=== PATIENT | male | born 1995 | race Two or more races ===

== ENCOUNTER 2021-01-19 20:23 | Observation (INO) | payer SELFPAY ==
[~2021-01-19] VITALS: Ht 162.6 cm; Wt 61.1 kg
--- NOTE | 2021-01-19 20:57 | ED.ADGEN ---
General Adult EDM: Chief Complaint: MUSCLE SPASM/CRAMP HPI: HPI: Patient is a 25 year old male coming in for generalized muscle cramping and spasms for the past 3 hours. Patient works outside doing construction. Patient states he is never had this problem in the past. Also complaining of cold foot but denies any fevers. Not had his Covid vaccines. Denies any cough, vomiting or diarrhea. He has been drinking water today. Review of Systems: Review of Systems: All other systems within normal limits except for as noted in the HPI Current Medications: Current Medications Medications (Trade) Dose Ordered Sig/Ida Start Time Stop Time Status Last Admin Dose Admin Lorazepam (Ativan Inj) 1 mg PRN Q4HRS PRN 01/19/21 22:00 Sodium Chloride 1,000 ml @ 125 mls/hr Q8H 01/19/21 22:00 01/19/21 22:59 125 MLS/HR Tizanidine HCl (Zanaflex) 4 mg PRN Q8HRS PRN 01/19/21 22:00 Allergies: Allergies: Allergies Coded Allergies Type Severity Reaction Last Updated Verified No Known Drug Allergies 01/19/21 No Physical Exam: PE: Constitutional: Well developed, well nourished, no acute distress, non-toxic appearance. [] HENT: Normocephalic, atraumatic, bilateral external ears normal, nose normal. [] Eyes: PERRLA, conjunctiva normal, no discharge. [] Neck: No rigidity, supple, no stridor. [] Cardiovascular: Regular rate and rhythm, brisk cap refill [] Lungs & Thorax: Non labored symmetric respirations, no tachypnea or respiratory distress [] Abdomen: Soft, nondistended. Skin: Warm, dry, no erythema, no rash. [] Back: Unremarkable Extremities: No deformities, range of motion grossly intact, no lower extremity edema [] Neurologic: Alert and oriented X 3, no focal deficits noted. [] Psychologic: Affect normal, judgement normal, mood normal. [] Current Patient Data: Labs: Laboratory Tests Test 01/19/21 20:55 01/19/21 21:15 01/19/21 21:25 White Blood Count 19.0 x10^3/uL (4.0-11.0) H Red Blood Count 5.46 x10^6/uL (4.30-5.70) Hemoglobin 16.9 g/dL (13.0-17.5) Hematocrit 48.7 % (39.0-53.0) Mean Corpuscular Volume 89 fL (79-100) Mean Corpuscular Hemoglobin 31 pg (25-35) Mean Corpuscular Hemoglobin Concent 35 g/dL (31-37) Red Cell Distribution Width 13.5 % (11.5-14.5) Platelet Count 459 x10^3/uL (140-400) H Neutrophils (%) (Auto) 90 % (31-73) H Lymphocytes (%) (Auto) 5 % (24-48) L Monocytes (%) (Auto) 5 % (0-9) Eosinophils (%) (Auto) 0 % (0-3) Basophils (%) (Auto) 1 % (0-3) Neutrophils # (Auto) 17.1 x10^3/uL (1.8-7.7) H Lymphocytes # (Auto) 0.9 x10^3/uL (1.0-4.8) L Monocytes # (Auto) 0.9 x10^3/uL (0.0-1.1) Eosinophils # (Auto) 0.0 x10^3/uL (0.0-0.7) Basophils # (Auto) 0.1 x10^3/uL (0.0-0.2) Segmented Neutrophils % 83 % (35-66) H Band Neutrophils % 2 % (0-9) Lymphocytes % 10 % (24-48) L Monocytes % 4 % (0-10) Basophils % 1 % (0-3) Platelet Estimate Increased (ADEQUATE) Sodium Level 131 mmol/L (136-145) L Potassium Level 4.6 mmol/L (3.5-5.1) Chloride Level 91 mmol/L (98-107) L Carbon Dioxide Level 24 mmol/L (21-32) Anion Gap 16 (6-14) H Blood Urea Nitrogen 18 mg/dL (8-26) Creatinine 2.5 mg/dL (0.7-1.3) H Estimated GFR (Cockcroft-Gault) 31.6 BUN/Creatinine Ratio 7 (6-20) Glucose Level 137 mg/dL (70-99) H Lactic Acid Level 2.0 mmol/L (0.4-2.0) Calcium Level 10.8 mg/dL (8.5-10.1) H Phosphorus Level 7.5 mg/dL (2.6-4.7) H Magnesium Level 2.5 mg/dL (1.8-2.4) H Total Bilirubin 0.6 mg/dL (0.2-1.0) Aspartate Amino Transferase (AST) 31 U/L (15-37) Alanine Aminotransferase (ALT) 33 U/L (16-63) Alkaline Phosphatase 91 U/L (46-116) Creatine Kinase 398 U/L (39-308) H Myoglobin 2056 ng/mL (16-96) H Total Protein 10.3 g/dL (6.4-8.2) H Albumin 5.4 g/dL (3.4-5.0) H Albumin/Globulin Ratio 1.1 (1.0-1.7) Thyroid Stimulating Hormone (TSH) 6.055 uIU/mL (0.358-3.74) H Free Thyroxine 1.12 ng/dL (0.76-1.46) Free Triiodothyronine (T3) pg/mL 5.19 pg/mL (2.18-3.98) H Ionized Calcium 1.19 mmol/L (1.13-1.32) SARS-CoV-2 Antigen (Rapid) Negative (NEGATIVE) Laboratory Tests 01/19/21 20:55 Laboratory Tests 01/19/21 20:55 Vital Signs: Vital Signs Date Time Temp Pulse Resp B/P (MAP) Pulse Ox O2 Delivery O2 Flow Rate FiO2 01/19/21 20:30 98.7 94 18 131/73 99 Room Air 98.7 EKG: EKG: Sinus rhythm, heart rate 80/min, normal axis, no ST elevation or depression, no ectopy. [] Heart Score: C/O Chest Pain: No Risk Factors: Risk Factors: DM, Current or recent (<one month) smoker, HTN, HLP, family history of CAD, obesity. Risk Scores: Score 0 - 3: 2.5% MACE over next 6 weeks - Discharge Home Score 4 - 6: 20.3% MACE over next 6 weeks - Admit for Clinical Observation Score 7 - 10: 72.7% MACE over next 6 weeks - Early Invasive Strategies Radiology/Procedures: Radiology/Procedures: [] Course & Med Decision Making: Course & Med Decision Making Admitted to hospitalist for dehydration and acute kidney injury Reyna Disclaimer: Reyna Disclaimer: This electronic medical record was generated, in whole or in part, using a voice recognition dictation system. Departure Departure Impression: Primary Impression: ROSE (acute kidney injury) Additional Impressions: Person under investigation for COVID-19 Dehydration Disposition: ADMITTED INPATIENT Admitting Physician: HIMS Referrals: NO PCP (PCP) Problem Qualifiers BIJU ESQUIVEL MD Jan 19, 2021 20:57
[2021-01-19] MEDS ORDERED: IV NORMAL SALINE 1000ML BAG 1,000 ML IV ONE (21:00)
[2021-01-19 21:05] LABS: BASO # 0.1 x10^3/uL (0.0-0.2); BASO % 1 % (0-3); EOS % 0 % (0-3); HEMATOCRIT 48.7 % (39.0-53.0); HEMOGLOBIN 16.9 g/dL (13.0-17.5); LYMPH # 0.9 x10^3/uL (1.0-4.8); LYMPH % 5 % (24-48); MEAN CORPUSCULAR HEMOGLOBIN 31 pg (25-35); MEAN CORPUSCULAR HGB CONC 35 g/dL (31-37); MEAN CORPUSCULAR VOLUME 89 fL (79-100); MONO # 0.9 x10^3/uL (0.0-1.1); MONO % 5 % (0-9); NEUT # 17.1 x10^3/uL (1.8-7.7); NEUT % 90 % (31-73); PLATELET COUNT 459 x10^3/uL (140-400); RED BLOOD COUNT 5.46 x10^6/uL (4.30-5.70); RED CELL DISTRIBUTION WIDTH 13.5 % (11.5-14.5)
[2021-01-19 21:15] LABS: CALCIUM 10.8 mg/dL (8.5-10.1); CREATININE 2.5 mg/dL (0.7-1.3); GFR 31.6; POTASSIUM 4.6 mmol/L (3.5-5.1)
[2021-01-19 21:30] LABS: % BANDS 2 % (0-9); % BASOS 1 % (0-3); % LYMPHS 10 % (24-48); % MONOS 4 % (0-10); % SEGS 83 % (35-66); PLT ESTIMATE INCREASED (ADEQUATE)
[2021-01-19 21:42] LABS: ALBUMIN 5.4 g/dL (3.4-5.0); ALBUMIN/GLOBULIN RATIO 1.1 (1.0-1.7); MAGNESIUM 2.5 mg/dL (1.8-2.4); PHOSPHORUS 7.5 mg/dL (2.6-4.7); TOTAL BILIRUBIN 0.6 mg/dL (0.2-1.0); TOTAL PROTEIN 10.3 g/dL (6.4-8.2)
[2021-01-19] MEDS ORDERED: tiZANidine 4 MG TABLET. PO PRN (22:00)
[2021-01-19 22:05] LABS: FREE T4 1.12 ng/dL (0.76-1.46)
[2021-01-19] MEDS ORDERED: ONDANSETRON PF 4 MG/2 ML VIAL. IVP PRN ×2 (22:15)
[2021-01-19] MEDS ORDERED: ACETAMINOPHEN 325 MG TABLET. PO PRN (22:15)
[2021-01-19] MEDS ORDERED: MAG HYDROX/ALUMINUM HYD/SIMETH 30 ML ORAL.SUSP PO PRN (22:15)
[2021-01-19] MEDS ORDERED: HYDROcodone/APAP 5/325MG 1 TAB TABLET PO PRN (22:15)
[2021-01-19] MEDS ORDERED: CALCIUM CARBONATE 500 MG TAB.CHEW PO PRN (22:15)
[2021-01-19] MEDS ORDERED: ZOLPIDEM 5 MG TABLET. PO PRN (22:15)
[2021-01-19] MEDS ORDERED: MAGNESIUM HYDROXIDE 2,400 MG/30 ML ORAL.SUSP. PO PRN (22:15)
[2021-01-19] MEDS ORDERED: IV NORMAL SALINE 1000ML BAG 1,000 ML IV SCH (22:15)
[2021-01-19] MEDS ORDERED: MORPHINE SULFATE 4 MG/ML INJ. IVP PRN (22:15)
--- NOTE | 2021-01-19 22:34 | EKG ---
[facility] [address] [place] [address] Test Date: 2021-01-19 Test Time: 21:27:08 Pat Name: KIMBERLY HOLM Department: Room: Gender: M Background Investigator: : 1995 Requested By: BIJU ESQUIVEL Order Number: [id number] Reading MD: Measurements Intervals [place] Rate: 81 P: 52 MO: 148 QRS: 65 QRSD: 92 T: 54 QT: 358 QTc: 421 Interpretive Statements SINUS RHYTHM NORMAL ECG RI6.02 No previous ECG available for comparison
[2021-01-19] MEDS: IV NORMAL SALINE 1000ML BAG 1,000 ML IV SCH (22:59)
[2021-01-20 00:30] VITALS: BP 117/77
--- NOTE | 2021-01-20 02:30 | NUR ---
IVF not assessed as they had just been hung
[2021-01-20 03:00] VITALS: BP 111/64
[2021-01-20 07:15] VITALS: BP 112/71
--- NOTE | 2021-01-20 07:26 | PDOC1 ---
History and Physical Date of Admission Date of Admission DATE: 01/20/21 TIME: 07:10 Identification/Chief Complaint Chief Complaint Muscle cramps Source Source: Chart review, Patient History of Present Illness History of Present Illness Patient is a 25-year-old male with no significant past medical history, who presents to the ED with complaints of muscle cramps and muscle spasms that began 3 hours prior to arrival in the ED. He denies any history of similar symptoms. 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 He denies any fever, cough, vomiting, diarrhea, or known sick contacts. Labs on admission showed WBC 19.0, sodium 131, BUN 18, creatinine 2.5, CK 398, myoglobin 2056, TSH 6.055. He received IV fluids in the ED. Will admit patient for further medical management. Past Medical History Past Medical History Denies significant past medical history Past Surgical History Past Surgical History Denies surgical history Family History Family History Denies significant family history Social History Smoke: No ALCOHOL: none Drugs: None Current Medications Current Medications Current Medications Sodium Chloride 1,000 ml @ 1,000 mls/hr 1X ONCE IV Last administered on 01/19/21at 21:15; Start 01/19/21 at 21:00; Stop 01/19/21 at 21:59; Status DC Lorazepam (Ativan Inj) 1 mg 1X ONCE IVP Last administered on 01/19/21at 21:15; Start 01/19/21 at 21:00; Stop 01/19/21 at 21:02; Status DC Lorazepam (Ativan Inj) 1 mg PRN Q4HRS PRN IVP TREMORS; Start 01/19/21 at 22:00 Tizanidine HCl (Zanaflex) 4 mg PRN Q8HRS PRN PO MUSCLE SPASMS; Start 01/19/21 at 22:00 Sodium Chloride 1,000 ml @ 125 mls/hr Q8H IV Last administered on 01/19/21at 22:59; Start 01/19/21 at 22:00 Ondansetron HCl (Zofran) 4 mg PRN Q8HRS PRN IVP NAUSEA/VOMITING; Start 01/19/21 at 22:15; Stop 01/20/21 at 22:14 Morphine Sulfate (Morphine Sulfate) 4 mg PRN Q2HR PRN IVP PAIN; Start 01/19/21 at 22:15; Stop 01/20/21 at 22:14 Sodium Chloride 1,000 ml @ 125 mls/hr Q8H IV ; Start 01/19/21 at 22:15; Stop 01/19/21 at 22:12; Status DC Ondansetron HCl (Zofran) 4 mg PRN Q6HRS PRN IVP NAUSEA/VOMITING; Start 01/19/21 at 22:15 Al Hydroxide/Mg Hydroxide (Mylanta Plus Xs) 30 ml PRN Q3HRS PRN PO HEARTBURN / GAS; Start 01/19/21 at 22:15 Calcium Carbonate/ Glycine (Tums) 500 mg PRN Q3HRS PRN PO UPSET STOMACH; Start 01/19/21 at 22:15 Zolpidem Tartrate (Ambien) 5 mg PRN QHS PRN PO INSOMNIA, MAY REPEAT IN 1HR; Start 01/19/21 at 22:15 Acetaminophen/ Hydrocodone Bitart (Lortab 5/325) 1 tab PRN Q4HRS PRN PO MILD PAIN 1-3; Start 01/19/21 at 22:15 Acetaminophen (Tylenol) 650 mg PRN Q6HRS PRN PO Headaches, Temp > 101.5F; Start 01/19/21 at 22:15 Magnesium Hydroxide (Milk Of Magnesia) 2,400 mg PRN Q12HR PRN PO CONSTIPATION; Start 01/19/21 at 22:15 Allergies Allergies: Coded Allergies: No Known Drug Allergies (Unverified , 01/19/21) ROS Review of System GENERAL: No history of weight change, weakness or fevers. SKIN: No bruising, hair changes or rashes. EYES: No blurred, double or loss of vision. NOSE AND THROAT: No history of nosebleeds, hoarseness or sore throat. HEART: Denies chest pain, denies palpitations. LUNGS: Denies cough, hemoptysis, wheezing or shortness of breath. GASTROINTESTINAL: Denies nausea, vomiting, abdominal pain. GENITOURINARY: Denies dysuria, frequency, urgency, hematuria. NEUROLOGIC: Denies history of numbness, tingling, tremor or weakness. PSYCHIATRIC: Denies anxiety, denies depression. ENDOCRINE: No history of heat or cold intolerance, polyuria or polydipsia. EXTREMITIES: Denies muscle weakness, joint pain, pain on walking or stiffness. Physical Exam Physical Exam General: Alert, Oriented X3, Cooperative, No acute distress HEENT: PERRLA, EOMI Lungs: Clear to auscultation, Normal air movement Heart: RRR, no murmurs Cardiovascular: S1, S2 Abdomen: Normal bowel sounds, Soft, No tenderness Extremities: No clubbing, No cyanosis Skin: No rashes, No significant lesion Neuro: Normal speech, Normal tone, Sensation intact Psych/Mental Status: Mental status NL, Mood NL Vitals Vitals Vital Signs Date Time Temp Pulse Resp B/P (MAP) Pulse Ox O2 Delivery O2 Flow Rate FiO2 01/20/21 03:00 98.3 83 16 111/64 (80) 100 98.3 01/19/21 23:49 Room Air Labs Labs Laboratory Tests Test 01/19/21 20:55 01/19/21 21:15 01/19/21 21:25 White Blood Count 19.0 x10^3/uL (4.0-11.0) Red Blood Count 5.46 x10^6/uL (4.30-5.70) Hemoglobin 16.9 g/dL (13.0-17.5) Hematocrit 48.7 % (39.0-53.0) Mean Corpuscular Volume 89 fL (79-100) Mean Corpuscular Hemoglobin 31 pg (25-35) Mean Corpuscular Hemoglobin Concent 35 g/dL (31-37) Red Cell Distribution Width 13.5 % (11.5-14.5) Platelet Count 459 x10^3/uL (140-400) Neutrophils (%) (Auto) 90 % (31-73) Lymphocytes (%) (Auto) 5 % (24-48) Monocytes (%) (Auto) 5 % (0-9) Eosinophils (%) (Auto) 0 % (0-3) Basophils (%) (Auto) 1 % (0-3) Neutrophils # (Auto) 17.1 x10^3/uL (1.8-7.7) Lymphocytes # (Auto) 0.9 x10^3/uL (1.0-4.8) Monocytes # (Auto) 0.9 x10^3/uL (0.0-1.1) Eosinophils # (Auto) 0.0 x10^3/uL (0.0-0.7) Basophils # (Auto) 0.1 x10^3/uL (0.0-0.2) Segmented Neutrophils % 83 % (35-66) Band Neutrophils % 2 % (0-9) Lymphocytes % 10 % (24-48) Monocytes % 4 % (0-10) Basophils % 1 % (0-3) Platelet Estimate Increased (ADEQUATE) Sodium Level 131 mmol/L (136-145) Potassium Level 4.6 mmol/L (3.5-5.1) Chloride Level 91 mmol/L (98-107) Carbon Dioxide Level 24 mmol/L (21-32) Anion Gap 16 (6-14) Blood Urea Nitrogen 18 mg/dL (8-26) Creatinine 2.5 mg/dL (0.7-1.3) Estimated GFR (Cockcroft-Gault) 31.6 BUN/Creatinine Ratio 7 (6-20) Glucose Level 137 mg/dL (70-99) Lactic Acid Level 2.0 mmol/L (0.4-2.0) Calcium Level 10.8 mg/dL (8.5-10.1) Phosphorus Level 7.5 mg/dL (2.6-4.7) Magnesium Level 2.5 mg/dL (1.8-2.4) Total Bilirubin 0.6 mg/dL (0.2-1.0) Aspartate Amino Transf (AST/SGOT) 31 U/L (15-37) Alanine Aminotransferase (ALT/SGPT) 33 U/L (16-63) Alkaline Phosphatase 91 U/L (46-116) Creatine Kinase 398 U/L (39-308) Myoglobin 2056 ng/mL (16-96) Total Protein 10.3 g/dL (6.4-8.2) Albumin 5.4 g/dL (3.4-5.0) Albumin/Globulin Ratio 1.1 (1.0-1.7) Thyroid Stimulating Hormone (TSH) 6.055 uIU/mL (0.358-3.74) Free Thyroxine 1.12 ng/dL (0.76-1.46) Free Triiodothyronine (T3) pg/mL 5.19 pg/mL (2.18-3.98) Ionized Calcium 1.19 mmol/L (1.13-1.32) SARS-CoV-2 Antigen (Rapid) Negative (NEGATIVE) Laboratory Tests Test 01/19/21 20:55 01/19/21 21:15 01/19/21 21:25 White Blood Count 19.0 x10^3/uL (4.0-11.0) Red Blood Count 5.46 x10^6/uL (4.30-5.70) Hemoglobin 16.9 g/dL (13.0-17.5) Hematocrit 48.7 % (39.0-53.0) Mean Corpuscular Volume 89 fL (79-100) Mean Corpuscular Hemoglobin 31 pg (25-35) Mean Corpuscular Hemoglobin Concent 35 g/dL (31-37) Red Cell Distribution Width 13.5 % (11.5-14.5) Platelet Count 459 x10^3/uL (140-400) Neutrophils (%) (Auto) 90 % (31-73) Lymphocytes (%) (Auto) 5 % (24-48) Monocytes (%) (Auto) 5 % (0-9) Eosinophils (%) (Auto) 0 % (0-3) Basophils (%) (Auto) 1 % (0-3) Neutrophils # (Auto) 17.1 x10^3/uL (1.8-7.7) Lymphocytes # (Auto) 0.9 x10^3/uL (1.0-4.8) Monocytes # (Auto) 0.9 x10^3/uL (0.0-1.1) Eosinophils # (Auto) 0.0 x10^3/uL (0.0-0.7) Basophils # (Auto) 0.1 x10^3/uL (0.0-0.2) Segmented Neutrophils % 83 % (35-66) Band Neutrophils % 2 % (0-9) Lymphocytes % 10 % (24-48) Monocytes % 4 % (0-10) Basophils % 1 % (0-3) Platelet Estimate Increased (ADEQUATE) Sodium Level 131 mmol/L (136-145) Potassium Level 4.6 mmol/L (3.5-5.1) Chloride Level 91 mmol/L (98-107) Carbon Dioxide Level 24 mmol/L (21-32) Anion Gap 16 (6-14) Blood Urea Nitrogen 18 mg/dL (8-26) Creatinine 2.5 mg/dL (0.7-1.3) Estimated GFR (Cockcroft-Gault) 31.6 BUN/Creatinine Ratio 7 (6-20) Glucose Level 137 mg/dL (70-99) Lactic Acid Level 2.0 mmol/L (0.4-2.0) Calcium Level 10.8 mg/dL (8.5-10.1) Phosphorus Level 7.5 mg/dL (2.6-4.7) Magnesium Level 2.5 mg/dL (1.8-2.4) Total Bilirubin 0.6 mg/dL (0.2-1.0) Aspartate Amino Transf (AST/SGOT) 31 U/L (15-37) Alanine Aminotransferase (ALT/SGPT) 33 U/L (16-63) Alkaline Phosphatase 91 U/L (46-116) Creatine Kinase 398 U/L (39-308) Myoglobin 2056 ng/mL (16-96) Total Protein 10.3 g/dL (6.4-8.2) Albumin 5.4 g/dL (3.4-5.0) Albumin/Globulin Ratio 1.1 (1.0-1.7) Thyroid Stimulating Hormone (TSH) 6.055 uIU/mL (0.358-3.74) Free Thyroxine 1.12 ng/dL (0.76-1.46) Free Triiodothyronine (T3) pg/mL 5.19 pg/mL (2.18-3.98) Ionized Calcium 1.19 mmol/L (1.13-1.32) SARS-CoV-2 Antigen (Rapid) Negative (NEGATIVE) VTE Prophylaxis Ordered VTE Prophylaxis Devices: Yes VTE Pharmacological Prophylaxi: No Assessment/Plan Assessment/Plan ROSE due to vasomotor nephropathy Clinical dehydration PUI Plan: Received IV fluids and Ativan in the ER Continuous IV fluids and muscle relaxers as needed 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 FEN - Regular diet PPX - SCDs FULL CODE Dispo - observation for above Justifications for Admission Other Justification VICKIE WHITTEN MD Jan 20, 2021 07:26
[2021-01-20 07:39] LABS: BASO % 1 % (0-3); EOS # 0.1 x10^3/uL (0.0-0.7); EOS % 1 % (0-3); HEMATOCRIT 42.1 % (39.0-53.0); HEMOGLOBIN 14.2 g/dL (13.0-17.5); LYMPH # 2.5 x10^3/uL (1.0-4.8); LYMPH % 29 % (24-48); MEAN CORPUSCULAR HEMOGLOBIN 30 pg (25-35); MEAN CORPUSCULAR HGB CONC 34 g/dL (31-37); MEAN CORPUSCULAR VOLUME 90 fL (79-100); MONO # 0.8 x10^3/uL (0.0-1.1); MONO % 9 % (0-9); NEUT # 5.3 x10^3/uL (1.8-7.7); NEUT % 60 % (31-73); PLATELET COUNT 389 x10^3/uL (140-400); RED BLOOD COUNT 4.69 x10^6/uL (4.30-5.70); RED CELL DISTRIBUTION WIDTH 13.7 % (11.5-14.5); WHITE BLOOD COUNT 8.7 x10^3/uL (4.0-11.0)
[2021-01-20 07:58] LABS: ALBUMIN 3.8 g/dL (3.4-5.0); CALCIUM 9.1 mg/dL (8.5-10.1); POTASSIUM 3.5 mmol/L (3.5-5.1); TOTAL PROTEIN 7.6 g/dL (6.4-8.2)
[2021-01-20] MEDS: IV NORMAL SALINE 1000ML BAG 1,000 ML IV SCH (09:14)
--- NOTE | 2021-01-20 09:34 | PDOC3 ---
Discharge Summary Visit Information Date of Admission: Jan 20, 2021 Date of Discharge: Jan 20, 2021 Brief Hospital Course Allergies Allergies Coded Allergies Type Severity Reaction Last Updated Verified No Known Drug Allergies 01/19/21 No Vital Signs Vital Signs Date Time Temp Pulse Resp B/P (MAP) Pulse Ox O2 Delivery O2 Flow Rate FiO2 01/20/21 07:15 98.3 68 20 112/71 (85) 95 98.3 01/19/21 23:49 Room Air Lab Results Laboratory Tests Test 01/19/21 20:55 01/19/21 21:15 01/19/21 21:25 01/20/21 06:45 White Blood Count 19.0 x10^3/uL (4.0-11.0) 8.7 x10^3/uL (4.0-11.0) Red Blood Count 5.46 x10^6/uL (4.30-5.70) 4.69 x10^6/uL (4.30-5.70) Hemoglobin 16.9 g/dL (13.0-17.5) 14.2 g/dL (13.0-17.5) Hematocrit 48.7 % (39.0-53.0) 42.1 % (39.0-53.0) Mean Corpuscular Volume 89 fL (79-100) 90 fL (79-100) Mean Corpuscular Hemoglobin 31 pg (25-35) 30 pg (25-35) Mean Corpuscular Hemoglobin Concent 35 g/dL (31-37) 34 g/dL (31-37) Red Cell Distribution Width 13.5 % (11.5-14.5) 13.7 % (11.5-14.5) Platelet Count 459 x10^3/uL (140-400) 389 x10^3/uL (140-400) Neutrophils (%) (Auto) 90 % (31-73) 60 % (31-73) Lymphocytes (%) (Auto) 5 % (24-48) 29 % (24-48) Monocytes (%) (Auto) 5 % (0-9) 9 % (0-9) Eosinophils (%) (Auto) 0 % (0-3) 1 % (0-3) Basophils (%) (Auto) 1 % (0-3) 1 % (0-3) Neutrophils # (Auto) 17.1 x10^3/uL (1.8-7.7) 5.3 x10^3/uL (1.8-7.7) Lymphocytes # (Auto) 0.9 x10^3/uL (1.0-4.8) 2.5 x10^3/uL (1.0-4.8) Monocytes # (Auto) 0.9 x10^3/uL (0.0-1.1) 0.8 x10^3/uL (0.0-1.1) Eosinophils # (Auto) 0.0 x10^3/uL (0.0-0.7) 0.1 x10^3/uL (0.0-0.7) Basophils # (Auto) 0.1 x10^3/uL (0.0-0.2) 0.0 x10^3/uL (0.0-0.2) Segmented Neutrophils % 83 % (35-66) Band Neutrophils % 2 % (0-9) Lymphocytes % 10 % (24-48) Monocytes % 4 % (0-10) Basophils % 1 % (0-3) Platelet Estimate Increased (ADEQUATE) Sodium Level 131 mmol/L (136-145) 132 mmol/L (136-145) Potassium Level 4.6 mmol/L (3.5-5.1) 3.5 mmol/L (3.5-5.1) Chloride Level 91 mmol/L (98-107) 97 mmol/L (98-107) Carbon Dioxide Level 24 mmol/L (21-32) 29 mmol/L (21-32) Anion Gap 16 (6-14) 6 (6-14) Blood Urea Nitrogen 18 mg/dL (8-26) 15 mg/dL (8-26) Creatinine 2.5 mg/dL (0.7-1.3) 1.0 mg/dL (0.7-1.3) Estimated GFR (Cockcroft-Gault) 31.6 91.0 BUN/Creatinine Ratio 7 (6-20) 15 (6-20) Glucose Level 137 mg/dL (70-99) 101 mg/dL (70-99) Lactic Acid Level 2.0 mmol/L (0.4-2.0) Calcium Level 10.8 mg/dL (8.5-10.1) 9.1 mg/dL (8.5-10.1) Phosphorus Level 7.5 mg/dL (2.6-4.7) Magnesium Level 2.5 mg/dL (1.8-2.4) Total Bilirubin 0.6 mg/dL (0.2-1.0) 1.0 mg/dL (0.2-1.0) Aspartate Amino Transf (AST/SGOT) 31 U/L (15-37) 23 U/L (15-37) Alanine Aminotransferase (ALT/SGPT) 33 U/L (16-63) 27 U/L (16-63) Alkaline Phosphatase 91 U/L (46-116) 66 U/L (46-116) Creatine Kinase 398 U/L (39-308) Myoglobin 2056 ng/mL (16-96) Total Protein 10.3 g/dL (6.4-8.2) 7.6 g/dL (6.4-8.2) Albumin 5.4 g/dL (3.4-5.0) 3.8 g/dL (3.4-5.0) Albumin/Globulin Ratio 1.1 (1.0-1.7) 1.0 (1.0-1.7) Thyroid Stimulating Hormone (TSH) 6.055 uIU/mL (0.358-3.74) Free Thyroxine 1.12 ng/dL (0.76-1.46) Free Triiodothyronine (T3) pg/mL 5.19 pg/mL (2.18-3.98) Ionized Calcium 1.19 mmol/L (1.13-1.32) SARS-CoV-2 Antigen (Rapid) Negative (NEGATIVE) Laboratory Tests Test 01/19/21 20:55 01/19/21 21:15 01/19/21 21:25 01/20/21 06:45 White Blood Count 19.0 x10^3/uL (4.0-11.0) 8.7 x10^3/uL (4.0-11.0) Red Blood Count 5.46 x10^6/uL (4.30-5.70) 4.69 x10^6/uL (4.30-5.70) Hemoglobin 16.9 g/dL (13.0-17.5) 14.2 g/dL (13.0-17.5) Hematocrit 48.7 % (39.0-53.0) 42.1 % (39.0-53.0) Mean Corpuscular Volume 89 fL (79-100) 90 fL (79-100) Mean Corpuscular Hemoglobin 31 pg (25-35) 30 pg (25-35) Mean Corpuscular Hemoglobin Concent 35 g/dL (31-37) 34 g/dL (31-37) Red Cell Distribution Width 13.5 % (11.5-14.5) 13.7 % (11.5-14.5) Platelet Count 459 x10^3/uL (140-400) 389 x10^3/uL (140-400) Neutrophils (%) (Auto) 90 % (31-73) 60 % (31-73) Lymphocytes (%) (Auto) 5 % (24-48) 29 % (24-48) Monocytes (%) (Auto) 5 % (0-9) 9 % (0-9) Eosinophils (%) (Auto) 0 % (0-3) 1 % (0-3) Basophils (%) (Auto) 1 % (0-3) 1 % (0-3) Neutrophils # (Auto) 17.1 x10^3/uL (1.8-7.7) 5.3 x10^3/uL (1.8-7.7) Lymphocytes # (Auto) 0.9 x10^3/uL (1.0-4.8) 2.5 x10^3/uL (1.0-4.8) Monocytes # (Auto) 0.9 x10^3/uL (0.0-1.1) 0.8 x10^3/uL (0.0-1.1) Eosinophils # (Auto) 0.0 x10^3/uL (0.0-0.7) 0.1 x10^3/uL (0.0-0.7) Basophils # (Auto) 0.1 x10^3/uL (0.0-0.2) 0.0 x10^3/uL (0.0-0.2) Segmented Neutrophils % 83 % (35-66) Band Neutrophils % 2 % (0-9) Lymphocytes % 10 % (24-48) Monocytes % 4 % (0-10) Basophils % 1 % (0-3) Platelet Estimate Increased (ADEQUATE) Sodium Level 131 mmol/L (136-145) 132 mmol/L (136-145) Potassium Level 4.6 mmol/L (3.5-5.1) 3.5 mmol/L (3.5-5.1) Chloride Level 91 mmol/L (98-107) 97 mmol/L (98-107) Carbon Dioxide Level 24 mmol/L (21-32) 29 mmol/L (21-32) Anion Gap 16 (6-14) 6 (6-14) Blood Urea Nitrogen 18 mg/dL (8-26) 15 mg/dL (8-26) Creatinine 2.5 mg/dL (0.7-1.3) 1.0 mg/dL (0.7-1.3) Estimated GFR (Cockcroft-Gault) 31.6 91.0 BUN/Creatinine Ratio 7 (6-20) 15 (6-20) Glucose Level 137 mg/dL (70-99) 101 mg/dL (70-99) Lactic Acid Level 2.0 mmol/L (0.4-2.0) Calcium Level 10.8 mg/dL (8.5-10.1) 9.1 mg/dL (8.5-10.1) Phosphorus Level 7.5 mg/dL (2.6-4.7) Magnesium Level 2.5 mg/dL (1.8-2.4) Total Bilirubin 0.6 mg/dL (0.2-1.0) 1.0 mg/dL (0.2-1.0) Aspartate Amino Transf (AST/SGOT) 31 U/L (15-37) 23 U/L (15-37) Alanine Aminotransferase (ALT/SGPT) 33 U/L (16-63) 27 U/L (16-63) Alkaline Phosphatase 91 U/L (46-116) 66 U/L (46-116) Creatine Kinase 398 U/L (39-308) Myoglobin 2056 ng/mL (16-96) Total Protein 10.3 g/dL (6.4-8.2) 7.6 g/dL (6.4-8.2) Albumin 5.4 g/dL (3.4-5.0) 3.8 g/dL (3.4-5.0) Albumin/Globulin Ratio 1.1 (1.0-1.7) 1.0 (1.0-1.7) Thyroid Stimulating Hormone (TSH) 6.055 uIU/mL (0.358-3.74) Free Thyroxine 1.12 ng/dL (0.76-1.46) Free Triiodothyronine (T3) pg/mL 5.19 pg/mL (2.18-3.98) Ionized Calcium 1.19 mmol/L (1.13-1.32) SARS-CoV-2 Antigen (Rapid) Negative (NEGATIVE) Brief Hospital Course Mr. Richey is a 25 old male who presented with generalized muscle cramps and muscle spasms, ROSE, clinical dehydration, leukocytosis. 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 He received IV fluids and symptomatic management. His ROSE, his leukocytosis resolved with IV fluids. He was COVID-19 negative. He was stable for discharge home with self-care. Discharge Information Condition at Discharge: Improved Disposition/Orders: D/C to Home Justicifation of Admission Dx: Justifications for Admission: Justification of Admission Dx: Yes VICKIE WHITTEN MD Jan 20, 2021 09:34
--- NOTE | 2021-01-20 11:16 | PDOC2 ---
CONSULT Date of Consult Date of Consult DATE: 01/20/21 TIME: 11:09 Reason for Consult Reason for Consult: ROSE Source Source: Chart review History of Present Illness Reason for Visit: Patient is a 25-year-old sudanese speaking male male with no significant past medical history, who presents to the ED with complaints of muscle cramps and muscle spasms that began 3 hours prior to arrival in the ED. He denies any history of similar symptoms. 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 He denies any fever, cough, vomiting, diarrhea, or known sick contacts. Labs on admission showed WBC 19.0, sodium 131, BUN 18, creatinine 2.5, CK 398, myoglobin 2056, TSH 6.055. He received IV fluids in the ED. Currently no complaints . No urinary complaints . No LE edema . No F/C , No SOB Past Medical History Past Medical History Denies significant past medical history Past Surgical History Past Surgical History Denies surgical history Family History Family History Denies significant family history Social History Social History Smoke: No ALCOHOL: none Drugs: None No ALCOHOL: none Drugs: None Current Medications Current Medications Current Medications Sodium Chloride 1,000 ml @ 1,000 mls/hr 1X ONCE IV Last administered on 01/19/21at 21:15; Start 01/19/21 at 21:00; Stop 01/19/21 at 21:59; Status DC Lorazepam (Ativan Inj) 1 mg 1X ONCE IVP Last administered on 01/19/21at 21:15; Start 01/19/21 at 21:00; Stop 01/19/21 at 21:02; Status DC Lorazepam (Ativan Inj) 1 mg PRN Q4HRS PRN IVP TREMORS; Start 01/19/21 at 22:00 Tizanidine HCl (Zanaflex) 4 mg PRN Q8HRS PRN PO MUSCLE SPASMS; Start 01/19/21 at 22:00 Sodium Chloride 1,000 ml @ 125 mls/hr Q8H IV Last administered on 01/20/21at 09:14; Start 01/19/21 at 22:00 Ondansetron HCl (Zofran) 4 mg PRN Q8HRS PRN IVP NAUSEA/VOMITING; Start 01/19/21 at 22:15; Stop 01/20/21 at 22:14 Morphine Sulfate (Morphine Sulfate) 4 mg PRN Q2HR PRN IVP PAIN; Start 01/19/21 at 22:15; Stop 01/20/21 at 22:14 Sodium Chloride 1,000 ml @ 125 mls/hr Q8H IV ; Start 01/19/21 at 22:15; Stop 01/19/21 at 22:12; Status DC Ondansetron HCl (Zofran) 4 mg PRN Q6HRS PRN IVP NAUSEA/VOMITING; Start 01/19/21 at 22:15 Al Hydroxide/Mg Hydroxide (Mylanta Plus Xs) 30 ml PRN Q3HRS PRN PO HEARTBURN / GAS; Start 01/19/21 at 22:15 Calcium Carbonate/ Glycine (Tums) 500 mg PRN Q3HRS PRN PO UPSET STOMACH; Start 01/19/21 at 22:15 Zolpidem Tartrate (Ambien) 5 mg PRN QHS PRN PO INSOMNIA, MAY REPEAT IN 1HR; Start 01/19/21 at 22:15 Acetaminophen/ Hydrocodone Bitart (Lortab 5/325) 1 tab PRN Q4HRS PRN PO MILD PAIN 1-3; Start 01/19/21 at 22:15 Acetaminophen (Tylenol) 650 mg PRN Q6HRS PRN PO Headaches, Temp > 101.5F; Start 01/19/21 at 22:15 Magnesium Hydroxide (Milk Of Magnesia) 2,400 mg PRN Q12HR PRN PO CONSTIPATION; Start 01/19/21 at 22:15 Active Scripts Active No Active Prescriptions or Reported Medications Allergies Allergies: Coded Allergies: No Known Drug Allergies (Unverified , 01/19/21) ROS Review of System As per HPI, rest of the ROS is negative Physical Exam Physical Exam General NAD HEEN OM moist, anicteric Neck Supple Lungs CTA Carduac, S1S2, No murmur Abd Soft, NR, BS _ Ext No LE edema Derm No rash Neuro Grossly Normal, No focal deficit No [place], No CAV or SP tenderness Psych Cooperative MS- No Joint swelling or tenderness Vital Signs Vital Signs Date Time Temp Pulse Resp B/P (MAP) Pulse Ox O2 Delivery O2 Flow Rate FiO2 01/20/21 08:00 Room Air 01/20/21 07:15 98.3 68 20 112/71 (85) 95 98.3 Assessment & Plan ROSE - vasomotor/Dehydration, Resolved with IVF. Avoid nephrotoxins including NSAID's, Stay Hydrated , Avoid Heat Exposure Dehydration- Improved clinically with IVF, maintain PO hydration, avoif heat exposure HypoNatremia- Mild, 2/2 to above Labs Labs Laboratory Tests Test 01/19/21 20:55 01/19/21 21:15 01/19/21 21:25 01/20/21 06:45 White Blood Count 19.0 x10^3/uL (4.0-11.0) 8.7 x10^3/uL (4.0-11.0) Red Blood Count 5.46 x10^6/uL (4.30-5.70) 4.69 x10^6/uL (4.30-5.70) Hemoglobin 16.9 g/dL (13.0-17.5) 14.2 g/dL (13.0-17.5) Hematocrit 48.7 % (39.0-53.0) 42.1 % (39.0-53.0) Mean Corpuscular Volume 89 fL (79-100) 90 fL (79-100) Mean Corpuscular Hemoglobin 31 pg (25-35) 30 pg (25-35) Mean Corpuscular Hemoglobin Concent 35 g/dL (31-37) 34 g/dL (31-37) Red Cell Distribution Width 13.5 % (11.5-14.5) 13.7 % (11.5-14.5) Platelet Count 459 x10^3/uL (140-400) 389 x10^3/uL (140-400) Neutrophils (%) (Auto) 90 % (31-73) 60 % (31-73) Lymphocytes (%) (Auto) 5 % (24-48) 29 % (24-48) Monocytes (%) (Auto) 5 % (0-9) 9 % (0-9) Eosinophils (%) (Auto) 0 % (0-3) 1 % (0-3) Basophils (%) (Auto) 1 % (0-3) 1 % (0-3) Neutrophils # (Auto) 17.1 x10^3/uL (1.8-7.7) 5.3 x10^3/uL (1.8-7.7) Lymphocytes # (Auto) 0.9 x10^3/uL (1.0-4.8) 2.5 x10^3/uL (1.0-4.8) Monocytes # (Auto) 0.9 x10^3/uL (0.0-1.1) 0.8 x10^3/uL (0.0-1.1) Eosinophils # (Auto) 0.0 x10^3/uL (0.0-0.7) 0.1 x10^3/uL (0.0-0.7) Basophils # (Auto) 0.1 x10^3/uL (0.0-0.2) 0.0 x10^3/uL (0.0-0.2) Segmented Neutrophils % 83 % (35-66) Band Neutrophils % 2 % (0-9) Lymphocytes % 10 % (24-48) Monocytes % 4 % (0-10) Basophils % 1 % (0-3) Platelet Estimate Increased (ADEQUATE) Sodium Level 131 mmol/L (136-145) 132 mmol/L (136-145) Potassium Level 4.6 mmol/L (3.5-5.1) 3.5 mmol/L (3.5-5.1) Chloride Level 91 mmol/L (98-107) 97 mmol/L (98-107) Carbon Dioxide Level 24 mmol/L (21-32) 29 mmol/L (21-32) Anion Gap 16 (6-14) 6 (6-14) Blood Urea Nitrogen 18 mg/dL (8-26) 15 mg/dL (8-26) Creatinine 2.5 mg/dL (0.7-1.3) 1.0 mg/dL (0.7-1.3) Estimated GFR (Cockcroft-Gault) 31.6 91.0 BUN/Creatinine Ratio 7 (6-20) 15 (6-20) Glucose Level 137 mg/dL (70-99) 101 mg/dL (70-99) Lactic Acid Level 2.0 mmol/L (0.4-2.0) Calcium Level 10.8 mg/dL (8.5-10.1) 9.1 mg/dL (8.5-10.1) Phosphorus Level 7.5 mg/dL (2.6-4.7) Magnesium Level 2.5 mg/dL (1.8-2.4) Total Bilirubin 0.6 mg/dL (0.2-1.0) 1.0 mg/dL (0.2-1.0) Aspartate Amino Transf (AST/SGOT) 31 U/L (15-37) 23 U/L (15-37) Alanine Aminotransferase (ALT/SGPT) 33 U/L (16-63) 27 U/L (16-63) Alkaline Phosphatase 91 U/L (46-116) 66 U/L (46-116) Creatine Kinase 398 U/L (39-308) Myoglobin 2056 ng/mL (16-96) Total Protein 10.3 g/dL (6.4-8.2) 7.6 g/dL (6.4-8.2) Albumin 5.4 g/dL (3.4-5.0) 3.8 g/dL (3.4-5.0) Albumin/Globulin Ratio 1.1 (1.0-1.7) 1.0 (1.0-1.7) Thyroid Stimulating Hormone (TSH) 6.055 uIU/mL (0.358-3.74) Free Thyroxine 1.12 ng/dL (0.76-1.46) Free Triiodothyronine (T3) pg/mL 5.19 pg/mL (2.18-3.98) Ionized Calcium 1.19 mmol/L (1.13-1.32) SARS-CoV-2 Antigen (Rapid) Negative (NEGATIVE) Laboratory Tests Test 01/19/21 20:55 01/19/21 21:15 01/19/21 21:25 01/20/21 06:45 White Blood Count 19.0 x10^3/uL (4.0-11.0) 8.7 x10^3/uL (4.0-11.0) Red Blood Count 5.46 x10^6/uL (4.30-5.70) 4.69 x10^6/uL (4.30-5.70) Hemoglobin 16.9 g/dL (13.0-17.5) 14.2 g/dL (13.0-17.5) Hematocrit 48.7 % (39.0-53.0) 42.1 % (39.0-53.0) Mean Corpuscular Volume 89 fL (79-100) 90 fL (79-100) Mean Corpuscular Hemoglobin 31 pg (25-35) 30 pg (25-35) Mean Corpuscular Hemoglobin Concent 35 g/dL (31-37) 34 g/dL (31-37) Red Cell Distribution Width 13.5 % (11.5-14.5) 13.7 % (11.5-14.5) Platelet Count 459 x10^3/uL (140-400) 389 x10^3/uL (140-400) Neutrophils (%) (Auto) 90 % (31-73) 60 % (31-73) Lymphocytes (%) (Auto) 5 % (24-48) 29 % (24-48) Monocytes (%) (Auto) 5 % (0-9) 9 % (0-9) Eosinophils (%) (Auto) 0 % (0-3) 1 % (0-3) Basophils (%) (Auto) 1 % (0-3) 1 % (0-3) Neutrophils # (Auto) 17.1 x10^3/uL (1.8-7.7) 5.3 x10^3/uL (1.8-7.7) Lymphocytes # (Auto) 0.9 x10^3/uL (1.0-4.8) 2.5 x10^3/uL (1.0-4.8) Monocytes # (Auto) 0.9 x10^3/uL (0.0-1.1) 0.8 x10^3/uL (0.0-1.1) Eosinophils # (Auto) 0.0 x10^3/uL (0.0-0.7) 0.1 x10^3/uL (0.0-0.7) Basophils # (Auto) 0.1 x10^3/uL (0.0-0.2) 0.0 x10^3/uL (0.0-0.2) Segmented Neutrophils % 83 % (35-66) Band Neutrophils % 2 % (0-9) Lymphocytes % 10 % (24-48) Monocytes % 4 % (0-10) Basophils % 1 % (0-3) Platelet Estimate Increased (ADEQUATE) Sodium Level 131 mmol/L (136-145) 132 mmol/L (136-145) Potassium Level 4.6 mmol/L (3.5-5.1) 3.5 mmol/L (3.5-5.1) Chloride Level 91 mmol/L (98-107) 97 mmol/L (98-107) Carbon Dioxide Level 24 mmol/L (21-32) 29 mmol/L (21-32) Anion Gap 16 (6-14) 6 (6-14) Blood Urea Nitrogen 18 mg/dL (8-26) 15 mg/dL (8-26) Creatinine 2.5 mg/dL (0.7-1.3) 1.0 mg/dL (0.7-1.3) Estimated GFR (Cockcroft-Gault) 31.6 91.0 BUN/Creatinine Ratio 7 (6-20) 15 (6-20) Glucose Level 137 mg/dL (70-99) 101 mg/dL (70-99) Lactic Acid Level 2.0 mmol/L (0.4-2.0) Calcium Level 10.8 mg/dL (8.5-10.1) 9.1 mg/dL (8.5-10.1) Phosphorus Level 7.5 mg/dL (2.6-4.7) Magnesium Level 2.5 mg/dL (1.8-2.4) Total Bilirubin 0.6 mg/dL (0.2-1.0) 1.0 mg/dL (0.2-1.0) Aspartate Amino Transf (AST/SGOT) 31 U/L (15-37) 23 U/L (15-37) Alanine Aminotransferase (ALT/SGPT) 33 U/L (16-63) 27 U/L (16-63) Alkaline Phosphatase 91 U/L (46-116) 66 U/L (46-116) Creatine Kinase 398 U/L (39-308) Myoglobin 2056 ng/mL (16-96) Total Protein 10.3 g/dL (6.4-8.2) 7.6 g/dL (6.4-8.2) Albumin 5.4 g/dL (3.4-5.0) 3.8 g/dL (3.4-5.0) Albumin/Globulin Ratio 1.1 (1.0-1.7) 1.0 (1.0-1.7) Thyroid Stimulating Hormone (TSH) 6.055 uIU/mL (0.358-3.74) Free Thyroxine 1.12 ng/dL (0.76-1.46) Free Triiodothyronine (T3) pg/mL 5.19 pg/mL (2.18-3.98) Ionized Calcium 1.19 mmol/L (1.13-1.32) SARS-CoV-2 Antigen (Rapid) Negative (NEGATIVE) Review All relevant outside records, renal labs, imaging studies, telemetry/EKG's were reviewed. BHAVIN MACKENZIE MD Jan 20, 2021 11:16
[2021-01-20 11:20] VITALS: BP 110/68
--- NOTE | 2021-01-20 12:20 | NUR ---
Discharge Note: BRITTANY HOLM Discharge instructions and discharge home medications reviewed with Patient and a copy given. All questions have been answered and understanding verbalized. The following instructions and handouts were given: discharge instructions, education and follow up recommendations. Discontinued lines and drains: Peripheral IV discontinued intact. Patient discharged to Home or Self Care with Family Member via Ambulated off unit by URGENT CARE PHYSICIAN ASSISTANT.
--- NOTE | 2021-01-20 12:46 | NUR ---
SW following. Discussed with RN, pt from home, room air, regular diet, rapid COVID-19 negative. Discharge order for home with self care.
== END 2021-01-20 12:20 | disposition home or self-care (01) ==
LOC: ER 20:23 → INTOOBSV 22:00 → 5 SOUTH 22:00
PROVIDERS: ADMIT Family Medicine; ATTEND Family Medicine
DX: N17.0 Acute kidney failure with tubular necrosis (principal); E86.0 Dehydration; Z20.822 Contact with and (suspected) exposure to COVID-19; D72.829 Elevated white blood cell count, unspecified; E87.1 Hypo-osmolality and hyponatremia; Z79.899 Other long term (current) drug therapy
CPT/HCPCS: 36415; 80053; 82310; 82550; 83605; 83735; 83874; 84100; 84439; 84442; 84443; 84481; 85025; 87426; 93005; 96361; 96374; 99284; G0378; J2060; J7030; U0003; U0005; 85007; G0379